=== PATIENT | male | born 1990 | race Native Hawaiian/Other Pacific Islander ===

== ENCOUNTER 2017-09-26 01:45 | Emergency (ER) | payer OTHER ==
--- NOTE | 2017-09-26 02:01 | C.PDOC ---
History Of Present Illness 17 year old male presents to the ED for evaluation of sharp like left sided non radiating CP that started a few hours ago. Patient describes the pain as mild non radiating and is mostly located to the left anterior chest wall. Patient reports this pain feels similar to when he had pneumothorax a few years back. Patient is concerned because he was scuba diving in [place] 2 days ago and reports the pain started tonight. Patient denies SOB, fever, chills, nausea, vomit, diarrhea, abdominal pain, weakness, numbness. Time Seen by Provider: 09/26/17 01:57 Chief Complaint (Nursing): Medical Clearance History Per: Patient History/Exam Limitations: no limitations Onset/Duration Of Symptoms: Hrs Current Symptoms Are (Timing): Still Present Severity: Mild Recent travel outside of the [place]: Yes ([place]) Additional History Per: Patient Past Medical History Reviewed: Historical Data, Nursing Documentation, Vital Signs Vital Signs: Last Vital Signs Temp 97.6 F 09/26/17 01:57 Pulse 63 09/26/17 01:57 Resp 16 09/26/17 02:03 BP 129/78 09/26/17 01:57 Pulse Ox 98 09/26/17 02:34 - Medical History PMH: Pneumothorax Surgical History: No Surg Hx Family History: States: Unknown Family Hx - Social History Hx Tobacco Use: No Hx Alcohol Use: No Hx Substance Use: No Review Of Systems Constitutional: Negative for: Fever, Chills Cardiovascular: Positive for: Chest Pain Respiratory: Negative for: Cough, Shortness of Breath Gastrointestinal: Negative for: Nausea, Vomiting, Abdominal Pain Musculoskeletal: Negative for: Neck Pain, Back Pain Skin: Negative for: Rash Neurological: Negative for: Weakness, Numbness Physical Exam - Physical Exam Appears: Non-toxic, No Acute Distress Skin: Normal Color, Warm, Dry Head: Atraumatic, Normacephalic Nose: No Discharge, No Deformity Oral Mucosa: Moist Neck: Normal ROM, Supple Chest: Symmetrical Cardiovascular: Rhythm Regular, No Murmur Respiratory: Normal Breath Sounds, No Rales, No Rhonchi, No Wheezing Gastrointestinal/Abdominal: Soft, No Tenderness, No Distention, No Rebound Extremity: Normal ROM, No Pedal Edema, No Calf Tenderness, No Swelling Neurological/Psych: Oriented x3, Normal Speech, Normal Cognition Gait: Steady ED Course And Treatment O2 Sat by Pulse Oximetry: 98 (On RA) Pulse Ox Interpretation: Normal - Radiology CXR: Interpreted by Me, Viewed By Me CXR Interpretation: Yes: No Acute Disease. No: Pnemothorax Progress Note: advised to return for repeat x-ray if pain becomes worse or SOB develops. Medical Decision Making Medical Decision Making: Impression : left sided CP Plan: * CXR Disposition - Disposition Disposition: HOME/ ROUTINE Disposition Time: 02:35 Condition: STABLE Additional Instructions: Return to ER for repeat chest x-ray if pain becomes worse or if shortness of breath develops. Forms: [employer] ([place]ian) - Clinical Impression Clinical Impression: Chest pain - Scribe Statement The provider has reviewed the documentation as recorded by the Scribe Chidi Beltran All medical record entries made by the Scribe were at my direction and personally dictated by me. I have reviewed the chart and agree that the record accurately reflects my personal performance of the history, physical exam, medical decision making, and the department course for this patient. I have also personally directed, reviewed, and agree with the discharge instructions and disposition.
[2017-09-26 02:02] VITALS: BP 129/78; PULSE 63; RESP 16; TEMP 97.6; O2SAT 98
--- NOTE | 2017-09-26 09:23 | RAD ---
Chest x-ray two views History: Left-sided pneumothorax. Comparison: 09/26/2017 Findings: No focal infiltrate or effusion. Linear lucency along the lateral aspect left upper ivet thorax likely represents Mach artifact as there do appear to be lung markings extending past this level. Heart size within normal limits. Impression: No focal infiltrate or effusion. Linear lucency along the lateral aspect left upper ivet thorax likely represents Mach artifact as there do appear to be lung markings extending past this level.
== END 2017-09-26 02:52 | disposition home or self-care (01) ==
LOC: C.ER 01:45
DX: R07.9 Chest pain, unspecified (principal)